=== PATIENT | male | born 1960 | race Two or more races ===

== ENCOUNTER 2019-08-08 12:05 | Emergency (ER) | payer MEDICAID, OTHER ==
[~2019-08-08] VITALS: Ht 170.2 cm; Wt 90.7 kg
[2019-08-08] MEDS ORDERED: IV NS 0.9% 1,000 ML BAG IV ONE (12:30)
[2019-08-08 12:35] LABS: BASOPHILS # (AUTO) 0.1 /CMM (0.0-0.2); BASOPHILS % (AUTO) 0.9 % (0.0-2.0); EOSINOPHILS % (AUTO) 1.3 % (0.0-6.0); HEMATOCRIT 48 % (39-51); HEMOGLOBIN 16.2 g/dL (13.5-17.5); LYMPHOCYTES # (AUTO) 2.2 /CMM (0.8-4.8); LYMPHOCYTES % (AUTO) 32.3 % (20.0-44.0); MEAN CORPUSCULAR HGB CONC 34 g/dl (31.0-36.0); MEAN CORPUSCULAR VOLUME 93 fL (80-96); MONOCYTES # (AUTO) 0.5 /CMM (0.1-1.30); NEUTROPHILS % (AUTO) 58.5 % (43.0-81.0); PLATELET COUNT (AUTO) 153 /CMM (150-450); RED BLOOD CELL COUNT(AUTO) 5.16 MIL/uL (4.5-6.0); WHITE BLOOD COUNT (AUTO) 6.9 K/uL (4.3-11.0)
--- NOTE | 2019-08-08 12:45 | NUR ---
sent frm PMD for r sided facial droop noted at 0700. pt states last known well time- 2300 last night before wendy to bed. PT AAOX4, VSS. RR EVEN & UNLABORED. PT SPEAKING IN FULL SENTENCES, STRONG EQUAL TRANSFER [employer]OLLER, NO ARM/LEG DRIFTING. DENIES DIZZINESS, VISUAL CHANGES, WEAKNESS, N/V @ THIS TIME. PT SEEN & EVAL'D BY DR. POWELL. WILL CONT TO MONITOR.
[2019-08-08 12:46] LABS: CALCIUM, SERUM 9.3 mg/dL (8.5-10.1); CARBON DIOXIDE 31 mmol/L (21-32); CHLORIDE 105 mmol/L (98-107); GLUCOSE 99 mg/dL (74-106); POTASSIUM 4.9 mmol/L (3.5-5.1); SODIUM SERUM 141 mmol/L (136-145); UREA NITROGEN, BLOOD 14 mg/dL (7-18)
[2019-08-08] MEDS ORDERED: CT SWABBABLE VALVE TRANS SET 1 EA INFUS.SET MC ONE (13:03)
[2019-08-08] MEDS ORDERED: IV NS 0.9% 250 ML IV ONE (13:03)
[2019-08-08] MEDS ORDERED: IOHEXOL-350 100 ML VIAL IV ONE (13:03)
--- NOTE | 2019-08-08 14:13 | NUR ---
Patient discharged to home in stable condition. Written and verbal after care instructions given. Patient verbalizes understanding of instruction. IV removed. Catheter intact and site benign. Pressure and 4x4 applied to site. No bleeding noted.
[2019-08-08 14:15] VITALS: BP 130/80
== END 2019-08-08 14:15 | disposition home or self-care (01) ==
LOC: ER 12:09
DX: G51.0 Bell's palsy (principal); R94.31 Abnormal electrocardiogram [ECG] [EKG]; Z88.1 Allergy status to other antibiotic agents
CPT/HCPCS: 36415; 70450; 70496; 70498; 80048; 84484; 85025; 85730; 93005; 99284; J7030; J7050; Q9967

== ENCOUNTER 2020-10-21 15:57 | Emergency (ER) | payer MEDICAID, OTHER ==
[~2020-10-21] VITALS: Ht 175.3 cm; Wt 80.7 kg
[2020-10-21 16:13] VITALS: BP 165/111
[2020-10-21] MEDS ORDERED: OXYC-128 PO (16:58)
[2020-10-21] MEDS ORDERED: KETOROLAC TROMETHAMINE INJ 30 MG/ML VIAL ONE (17:02)
[2020-10-21] MEDS: KETOROLAC TROMETHAMINE INJ 60 MG/2 ML VIAL IM ONE (17:08)
== END 2020-10-21 17:14 | disposition home or self-care (01) ==
LOC: ER 16:06
DX: S20.211A Contusion of right front wall of thorax, initial encounter (principal); I10 Essential (primary) hypertension; Z98.890 Other specified postprocedural states; Z88.1 Allergy status to other antibiotic agents; Z79.899 Other long term (current) drug therapy; W18.39XA Other fall on same level, initial encounter; Y93.89 Activity, other specified; Y92.89 Other specified places as the place of occurrence of the external cause; Y99.8 Other external cause status
CPT/HCPCS: 71100; 96372; 99283; J1885

== ENCOUNTER 2021-06-13 11:59 | Emergency (ER) | payer MEDICAID ==
[~2021-06-13] VITALS: Ht 170.2 cm; Wt 90.7 kg
[~2021-06-13 11:59] MED LIST: OXYC-128 PO
[2021-06-13] MEDS ORDERED: IOHEXOL-300 100 ML VIAL IV ONE (13:52)
[2021-06-13] MEDS ORDERED: IV NS 0.9% 250 ML IV ONE (13:53)
--- NOTE | 2021-06-13 14:00 | NUR ---
SALINE LOCK ESTABLISHED, BLOOD DRAWN AND SENT TO LAB
--- NOTE | 2021-06-13 14:01 | NUR ---
TAKEN TO CT
[2021-06-13 14:12] LABS: BASOPHILS # (AUTO) 0.1 K/uL (0.0-0.2); EOSINOPHILS % (AUTO) 1.7 % (0.0-6.0); HEMATOCRIT 45 % (39-51); HEMOGLOBIN 15.7 g/dL (13.5-17.5); LYMPHOCYTES # (AUTO) 2.1 K/uL (0.8-4.8); LYMPHOCYTES % (AUTO) 28.3 % (20.0-44.0); MEAN CORPUSCULAR HGB CONC 35 g/dl (31.0-36.0); MEAN CORPUSCULAR VOLUME 94 fL (80-96); MONOCYTES # (AUTO) 0.5 K/uL (0.1-1.30); MONOCYTES % (AUTO) 6.9 % (2.0-12.0); NEUTROPHILS # (AUTO) 4.6 K/uL (1.8-8.9); NEUTROPHILS % (AUTO) 62.1 % (43.0-81.0); PLATELET COUNT (AUTO) 144 K/uL (150-450); RED BLOOD CELL COUNT(AUTO) 4.76 MIL/uL (4.5-6.0); WHITE BLOOD COUNT (AUTO) 7.3 K/uL (4.3-11.0)
[2021-06-13 14:32] LABS: CALCIUM, SERUM 8.9 mg/dL (8.5-10.1); CREATININE 1.2 mg/dL (0.6-1.3); POTASSIUM 4.6 mmol/L (3.5-5.1)
[2021-06-13 14:42] LABS: ALBUMIN 3.8 g/dL (3.4-5.0); BILIRUBIN,DIRECT 0.1 mg/dL (0.0-0.2); BILIRUBIN,TOTAL 0.5 mg/dL (0.2-1.0); TOTAL PROTEIN, SERUM 7.1 g/dL (6.4-8.2)
[2021-06-13] MEDS ORDERED: OMEP20CA15 PO (14:51)
[2021-06-13] MEDS ORDERED: LIDOCAINE VISCOUS 2% UD 15 ML UDC ONE (15:40)
[2021-06-13] MEDS ORDERED: MAG HYDROX/AL HYDROX/SIMETH 30 ML UDC ONE (15:40)
[2021-06-13] MEDS: MAG HYDROX/AL HYDROX/SIMETH 30 ML UDC PO ONE (15:45)
[2021-06-13] MEDS: LIDOCAINE VISCOUS 2% UD 15 ML UDC MM ONE (15:45)
[2021-06-13] MEDS ORDERED: METO-295 PO (16:15)
--- NOTE | 2021-06-13 16:18 | NUR ---
IV removed. Catheter intact and site benign. Pressure and 4x4 applied to site. No bleeding noted.Patient discharged to home in stable condition. Written and verbal after care instructions given. Patient verbalizes understanding of instruction.
[2021-06-13 16:24] VITALS: BP 148/99
== END 2021-06-13 16:24 | disposition home or self-care (01) ==
LOC: ER 12:01
DX: R10.13 Epigastric pain (principal); I10 Essential (primary) hypertension; Z88.1 Allergy status to other antibiotic agents
CPT/HCPCS: 36415; 71045; 71260; 74177; 80048; 80076; 83690; 84484; 85025; 93005; 99285; J7050; Q9967

== ENCOUNTER 2021-11-17 15:22 | Emergency (ER) | payer MEDICAID ==
[~2021-11-17] VITALS: Ht 175.3 cm; Wt 86.2 kg
[~2021-11-17 15:22] MED LIST changes: +METO-295 PO; +OMEP20CA15 PO
[2021-11-17 15:29] VITALS: BP 152/90
[2021-11-17] MEDS ORDERED: LIDOCAINE HCL/PF 1% 30 ML SDV ONE (15:49)
--- NOTE | 2021-11-17 16:07 | NUR ---
ENROLLER KESTENIAN AT BEDSIDE FOR EVAL
[2021-11-17] MEDS ORDERED: SULF1TAB48 PO (16:15)
--- NOTE | 2021-11-17 16:25 | NUR ---
Patient discharged to home in stable condition. Written and verbal after care instructions given. Patient verbalizes understanding of instruction.
== END 2021-11-17 16:25 | disposition home or self-care (01) ==
LOC: ER 15:25
DX: L72.0 Epidermal cyst (principal); L03.312 Cellulitis of back [any part except buttock and flank]; I10 Essential (primary) hypertension; Z88.1 Allergy status to other antibiotic agents; Z79.899 Other long term (current) drug therapy
CPT/HCPCS: 99283; J3490